=== PATIENT | female | born 1975 | race Caucasian/White ===

== ENCOUNTER → 2018-01-02 | Outpatient (CLI) | payer BC | LOC: GMAJ 10:41 | PROVIDERS: ATTEND Family Medicine | DX: Z00.00 Encounter for general adult medical examination without abnormal findings (principal) ==

== ENCOUNTER → 2018-01-09 | Outpatient (CLI) | payer BC ==
--- NOTE | 2018-01-09 16:43 | US ---
US THYROID CLINICAL STATEMENT: THYROID NODULE. COMPARISON: None FINDINGS: Size right thyroid lobe: 4.4 x 2.1 x 1.6 cm Size left thyroid lobe: 4.5 x 1.7 x 1.5 cm Size isthmus: 0.24 cm Estimated total number of nodules greater than or equal to 1 cm: None. No nodules or cysts were seen. Homogeneous echotexture. Smooth capsule. In the soft tissues abutting the thyroid, no distinct solid mass or cyst. No parenchymal edema or large calcifications. No abnormal vascularity. IMPRESSION: 1. Thyroid ultrasound showing normal size of the gland and negative findings. Soft tissues around the thyroid gland are unremarkable. Electronically signed by: Mor Landa MD 01/09/2018 4:41 PM CDT
== END ==
LOC: US 09:50
PROVIDERS: ATTEND Family Medicine
DX: E04.1 Nontoxic single thyroid nodule (principal)

== ENCOUNTER → 2018-01-23 | Outpatient (CLI) | payer BC | LOC: GMAJ 11:47 | PROVIDERS: ATTEND Family Medicine | DX: R94.5 Abnormal results of liver function studies (principal) ==

== ENCOUNTER → 2018-01-30 | Outpatient (CLI) | payer BC ==
--- NOTE | 2018-01-30 13:26 | US ---
EXAM DESCRIPTION: Abdomen,Complete: Ultrasound. CLINICAL HISTORY: ELEVATED LFT'S COMPARISON: None Available. TECHNIQUE: Transabdominal scannin-dimensional and Doppler modes. Patient has large body habitus. FINDINGS: Gallbladder: Normal size and echogenicity. No intraluminal stones or sludge. No wall thickening (1.2 mm) or fluid around the gallbladder. Nontender with transducer pressure. Common bile duct: 3.0 mm, normal caliber. Liver: Heterogeneously dense minimally echogenic. Posterior capsule and anatomy not well seen. 16.9 cm long axis of the right lobe Pancreas: Normal size and echogenicity. Pancreatic duct not seen.. Abdominal aorta: Normal caliber from the proximal segment to the distal bifurcation. IVC: visualized; normal caliber. Spleen normal echogenicity; long axis measurement is 11.6 cm. Right kidney: 10.0 cm long axis. Normal cortical thickness and echogenicity. No hydronephrosis or perinephric fluid. Left kidney: 10.9 cm long axis. Normal cortical thickness and echogenicity. 1.1 x 1.0 cm cortical cyst. No hydronephrosis or perinephric fluid. IMPRESSION: 1. Mild enlargement of the liver with steatosis. Ducts and vascularity unremarkable. Smooth capsule with no ascites. 2. Pancreas spleen and right kidney unremarkable. 3. Gallbladder with no stones. Normal caliber of the duct. 4. 1.1 cm cyst in the left renal cortex, otherwise negative. Electronically signed by: Mor Landa MD 01/30/2018 1:25 PM [facility] [employer] [employer]IST
== END ==
LOC: US 08:10
PROVIDERS: ATTEND Family Medicine
DX: R94.5 Abnormal results of liver function studies (principal); K76.0 Fatty (change of) liver, not elsewhere classified; N28.1 Cyst of kidney, acquired